=== PATIENT | male | born 1950 | race Caucasian/White ===

== ENCOUNTER 2019-05-02 12:28 | Outpatient (CLI) | payer MEDICARE, OTHER, SELFPAY | END 2019-05-02 12:29 | disposition home or self-care (01) | LOC: SPT 12:28 | PROVIDERS: Visit Provider Podiatrist Foot & Ankle Surgery | DX: L97.512 Non-pressure chronic ulcer of other part of right foot with fat layer exposed (principal) | CPT/HCPCS: L4361 ==